=== PATIENT | male | born 1955 | race Caucasian/White ===

== ENCOUNTER 2017-07-07 13:09 | Emergency (ER) | payer OTHER ==
[~2017-07-07] VITALS: Ht 167.6 cm; Wt 90.5 kg
[2017-07-07] MEDS ORDERED: ASPI81TA85 PO (13:22)
[2017-07-07] MEDS ORDERED: METF500T13 PO (13:22)
--- NOTE | 2017-07-07 14:15 | REP ---
CT Head without contrast HISTORY: Infarction COMPARISON: None There is no intraparenchymal hemorrhage, acute infarct, mass or midline shift. The ventricular system and cortical sulci are dilated consistent with minimal volume loss. There is no extra cerebral collection. There is no fracture. The visualized sinuses are clear. IMPRESSION: Minimal volume loss. Signed by Salazar Castañeda MD 07/07/2017 02:06 P
--- NOTE | 2017-07-07 14:32 | REP ---
CHEST PA AND LATERAL: 07/07/2017 CLINICAL HISTORY: Near-syncope. FINDINGS: There are no prior studies. The lungs are well inflated. There is no effusion, lateral pleural thickening, apical scarring, pneumothorax. Heart, mediastinal, and hilar contours normal. There is no cardiomegaly, vascular redistribution or pulmonary edema. Airway and aorta are intact. The bony thorax without compression deformity of focal lesion. IMPRESSION: No acute cardiopulmonary change. Signed by Brayden Dove MD 07/07/2017 06:56 P
[2017-07-07 14:35] LABS: BASO # 0.1 10^3/uL (0.0-0.2); BASO % 0.4 % (0.0-1.0); EOS # 0.1 10^3/uL (0.0-0.50); EOS % 0.6 % (0.0-3.0); IMMATURE GRANULOCYTE % 0.7 % (0-0); LYMPH # 1.7 10^3/uL (1.5-4.5); LYMPH % 14.1 % (24.0-44.0); MEAN CORPUSCULAR HEMOGLOBIN 30.7 pg (27.0-33.0); MEAN CORPUSCULAR VOLUME 83.8 fl (80.0-96.0); MONO # 0.6 10^3/uL (0.0-0.8); MONO % 5.3 % (0.0-5.0); NEUTROPHILS # 9.2 10^3/uL (1.8-7.7); NEUTROPHILS % 78.9 % (36.0-66.0); PLATELET COUNT, AUTOMATED 171 10^3/uL (150-450); WHITE BLOOD COUNT 11.7 10^3/uL (4.0-10.0)
[2017-07-07 14:48] LABS: MEAN CORPUSCULAR HGB CONC 36.6 g/dl (32.0-36.5)
[2017-07-07 15:55] VITALS: BP 145/86
[2017-07-07 16:18] LABS: ANION GAP 11 MEQ/L (8-16); BLOOD UREA NITROGEN 13 MG/DL (7-18); CALCIUM LEVEL 8.4 MG/DL (8.8-10.2); CARBON DIOXIDE LEVEL 22 MEQ/L (21-32); CHLORIDE LEVEL 109 MEQ/L (98-107); FREE T4 1.19 NG/DL (0.76-1.46); GLOMERULAR FILTRATION RATE > 60.0 (>49); GLUCOSE, FASTING 124 MG/DL (80-110); PHOSPHORUS LEVEL 1.9 MG/DL (2.5-4.9); POTASSIUM SERUM 3.8 MEQ/L (3.5-5.1); SODIUM LEVEL 142 MEQ/L (136-145)
--- NOTE | 2017-07-08 12:24 | ECGEPIP ---
Stationary ECG Study [facility] - ED Test Date: 2017-07-07 Pat Name: BENIGNO BANERJEE Department: Room: - Gender: M Section Leader: : 1955 Requested By: XAVI Rice Order Number: [id number] Reading MD: Joy Wynn Measurements Intervals [place] Rate: 53 P: 47 LA: 138 QRS: 43 QRSD: 120 T: 8 QT: 447 QTc: 420 Interpretive Statements SINUS BRADYCARDIA MODERATE INTRAVENTRICULAR CONDUCTION DELAY DECREASED RATE 01/13/16 Electronically Signed On 07-08-2017 12:24:01 EST by Joy Wynn
== END 2017-07-07 16:50 | disposition left against medical advice (07) ==
LOC: M ED 13:09 → EDBD 13:09 → M ED 16:50
DX: R55 Syncope and collapse (principal); E11.9 Type 2 diabetes mellitus without complications; I10 Essential (primary) hypertension; F43.10 Post-traumatic stress disorder, unspecified; M72.2 Plantar fascial fibromatosis; Z79.82 Long term (current) use of aspirin; Z79.84 Long term (current) use of oral hypoglycemic drugs; Z87.891 Personal history of nicotine dependence

== ENCOUNTER → 2018-01-11 | Outpatient (CLI) | payer OTHER ==
[2018-01-11 12:08] LABS: HEMATOCRIT 44.6 % (42.0-52.0); HEMOGLOBIN 15.5 g/dl (13.5-17.5); MEAN CORPUSCULAR HEMOGLOBIN 30.3 pg (27.0-33.0); MEAN CORPUSCULAR HGB CONC 34.8 g/dl (32.0-36.5); MEAN CORPUSCULAR VOLUME 87.3 fl (80.0-96.0); PLATELET COUNT, AUTOMATED 189 10^3/uL (150-450); RED BLOOD COUNT 5.11 10^6/uL (4.30-6.10); RED CELL DISTRIBUTION WIDTH 12.7 % (11.5-14.5); WHITE BLOOD COUNT 9.9 10^3/uL (4.0-10.0)
[2018-01-11 12:58] LABS: ANION GAP 5 MEQ/L (8-16); BLOOD UREA NITROGEN 14 MG/DL (7-18); CALCIUM LEVEL 8.9 MG/DL (8.8-10.2); CARBON DIOXIDE LEVEL 30 MEQ/L (21-32); CHLORIDE LEVEL 107 MEQ/L (98-107); CREATININE FOR GFR 1.19 MG/DL (0.70-1.30); GLOMERULAR FILTRATION RATE > 60.0 (>49); GLUCOSE, FASTING 138 MG/DL (70-100); POTASSIUM SERUM 4.2 MEQ/L (3.5-5.1); SODIUM LEVEL 142 MEQ/L (136-145)
== END ==
LOC: M LAB 11:39
DX: I48.91 Unspecified atrial fibrillation (principal)

== ENCOUNTER → 2020-01-12 | Outpatient (CLI) | payer OTHER ==
[~2020-01-12] MED LIST: ASPI81TA85 PO; LOSA50TA88 PO; METF500T13 PO; OMEP1CAP73 PO; ROSU20TA5 PO; XARE20TA PO
== END ==
LOC: M LABSMTC 09:27
PROVIDERS: ATTEND Anesthesiology
DX: Z03.818 Encounter for observation for suspected exposure to other biological agents ruled out (principal); Z11.59 Encounter for screening for other viral diseases
CPT/HCPCS: C9803; U0003

== ENCOUNTER 2020-01-15 06:37 | Day surgery (SDC) | payer OTHER ==
[~2020-01-15] VITALS: Ht 167.6 cm; Wt 85.3 kg
[~2020-01-15 06:37] MED LIST changes: +NS 1,000 ML IV ONE
[2020-01-15] MEDS ORDERED: propofoL 200 MG/20 ML VIAL As Ordered ONE ×2 (07:05→08:01)
[2020-01-15] MEDS ORDERED: LIDOCAINE 2% 100MG/5ML SDV (FOR ANES.) As Ordered ONE (07:05)
[2020-01-15] MEDS ORDERED: fentaNYL 100 MCG/2 ML INJECTION (J3010) As Ordered ONE (07:41)
--- NOTE | 2020-01-15 08:28 | ROOR ---
Patient Name: Harley Reeves Procedure Date: 01/15/2020 7:36 AM Date of : 1955 Age: 64 Room: [facility] Gender: Male Note Status: Finalized Procedure: Upper GI endoscopy Indications: Follow-up of esophageal reflux Providers: Dl Meier MD Referring MD: YUAN DALLAS Requesting Provider: Medicines: Monitored Anesthesia Care Complications: No immediate complications. Procedure: Pre-Anesthesia Assessment: - Prior to the procedure, a History and Physical was performed, and patient medications and allergies were reviewed. The patient is competent. The risks and benefits of the procedure and the sedation options and risks were discussed with the patient. All questions were answered and informed consent was obtained. Patient identification and proposed procedure were verified by the physician, the nurse and the anesthesiologist in the endoscopy suite. Mental Status Examination: alert and oriented. Airway Examination: normal oropharyngeal airway and neck mobility. Respiratory Examination: clear to auscultation. CV Examination: normal. Prophylactic Antibiotics: The patient does not require prophylactic antibiotics. Prior Anticoagulants: The patient has taken Xarelto (rivaroxaban), last dose was 2 days prior to procedure. ASA Grade Assessment: III - A patient with severe systemic disease. After reviewing the risks and benefits, the patient was deemed in satisfactory condition to undergo the procedure. The anesthesia plan was to use monitored anesthesia care (MAC). Immediately prior to administration of medications, the patient was re-assessed for adequacy to receive sedatives. The heart rate, respiratory rate, oxygen saturations, blood pressure, adequacy of pulmonary ventilation, and response to care were monitored throughout the procedure. The physical status of the patient was re-assessed after the procedure. The Endoscope was introduced through the mouth, and advanced to the second part of duodenum. The upper GI endoscopy was accomplished without difficulty. The patient tolerated the procedure well. Findings: The Z-line was irregular and was found 38 cm from the incisors. Mucosa was biopsied with a cold forceps for histology. One specimen bottle was sent to pathology. A small hiatal hernia was present. The entire examined stomach was normal. The first portion of the duodenum and second portion of the duodenum were normal. Impression: - Z-line irregular, 38 cm from the incisors. Biopsied. - Small hiatal hernia. - Normal stomach. - Normal first portion of the duodenum and second portion of the duodenum. Recommendation: - Discharge patient to home (ambulatory). - Continue present medications. - Telephone GI office for pathology results in 1 week. Dl Meier MD Dl Meier MD 01/15/2020 8:27:49 AM Electronically signed by Dl Meier MD Number of Addenda: 0 Note Initiated On: 01/15/2020 7:36 AM Estimated Blood Loss: Estimated blood loss was minimal.
--- NOTE | 2020-01-15 08:34 | ROOR ---
Patient Name: Harley Reeves Procedure Date: 01/15/2020 7:37 AM Date of : 1955 Age: 64 Room: [facility] Gender: Male Note Status: Finalized Procedure: Colonoscopy Indications: Screening for colorectal malignant neoplasm Providers: Dl Meier MD Referring MD: YUAN DALLAS Requesting Provider: Medicines: Monitored Anesthesia Care Complications: No immediate complications. Procedure: Pre-Anesthesia Assessment: - Prior to the procedure, a History and Physical was performed, and patient medications and allergies were reviewed. The patient is competent. The risks and benefits of the procedure and the sedation options and risks were discussed with the patient. All questions were answered and informed consent was obtained. Patient identification and proposed procedure were verified by the physician, the nurse and the anesthesiologist in the endoscopy suite. Mental Status Examination: alert and oriented. Airway Examination: normal oropharyngeal airway and neck mobility. Respiratory Examination: clear to auscultation. CV Examination: normal. Prophylactic Antibiotics: The patient does not require prophylactic antibiotics. Prior Anticoagulants: The patient has taken Xarelto (rivaroxaban), last dose was 2 days prior to procedure. ASA Grade Assessment: III - A patient with severe systemic disease. After reviewing the risks and benefits, the patient was deemed in satisfactory condition to undergo the procedure. The anesthesia plan was to use monitored anesthesia care (MAC). Immediately prior to administration of medications, the patient was re-assessed for adequacy to receive sedatives. The heart rate, respiratory rate, oxygen saturations, blood pressure, adequacy of pulmonary ventilation, and response to care were monitored throughout the procedure. The physical status of the patient was re-assessed after the procedure. The Colonoscope was introduced through the anus and advanced to the cecum, identified by appendiceal orifice and ileocecal valve. The colonoscopy was performed without difficulty. The patient tolerated the procedure well. The quality of the bowel preparation was excellent. Findings: Hemorrhoids were found on perianal exam. Two semi-pedunculated polyps were found in the descending colon, transverse colon and ascending colon. The polyps were 2 to 5 mm in size. These polyps were removed with a hot snare. Resection and retrieval were complete. Estimated blood loss was minimal. Two sessile polyps were found in the descending colon and transverse colon. The polyps were diminutive in size. These polyps were removed with a cold biopsy forceps. Resection and retrieval were complete. Estimated blood loss was minimal. The retroflexed view of the distal rectum and anal verge was normal and showed no anal or rectal abnormalities. Impression: - Hemorrhoids found on perianal exam. - Two 2 to 5 mm polyps in the descending colon, in the transverse colon and in the ascending colon, removed with a hot snare. Resected and retrieved. - Two diminutive polyps in the descending colon and in the transverse colon, removed with a cold biopsy forceps. Resected and retrieved. - The distal rectum and anal verge are normal on retroflexion view. Recommendation: - Discharge patient to home (ambulatory). - Await pathology results. - Resume Xarelto (rivaroxaban) at prior dose tomorrow. Refer to managing physician for further adjustment of therapy. - Repeat colonoscopy in 3 - 5 years for surveillance of multiple polyps. Dl Meier MD Dl Meier MD 01/15/2020 8:34:11 AM Electronically signed by Dl Meier MD Number of Addenda: 0 Note Initiated On: 01/15/2020 7:37 AM Estimated Blood Loss: Estimated blood loss was minimal.
[2020-01-15 08:50] VITALS: BP 134/99
== END 2020-01-15 08:51 | disposition home or self-care (01) ==
LOC: M OPP 06:37
PROVIDERS: ATTEND Surgery
DX: Z12.11 Encounter for screening for malignant neoplasm of colon (principal); K64.8 Other hemorrhoids; D12.2 Benign neoplasm of ascending colon; D12.3 Benign neoplasm of transverse colon; K22.8 Other specified diseases of esophagus; K44.9 Diaphragmatic hernia without obstruction or gangrene; K21.9 Gastro-esophageal reflux disease without esophagitis; I10 Essential (primary) hypertension; E11.9 Type 2 diabetes mellitus without complications; I48.91 Unspecified atrial fibrillation; F17.210 Nicotine dependence, cigarettes, uncomplicated
CPT/HCPCS: 43239; 45380; 45385; 88305; J3010

== ENCOUNTER → 2020-03-03 | Outpatient (REF) | payer MEDICARE, OTHER ==
[~2020-03-03] MED LIST changes: -ASPI81TA85 PO; +ASPI81TA86 PO; +JANU100T PO; -NS 1,000 ML IV ONE; +SILD100T PO
== END ==
LOC: M SMT 07:08
PROVIDERS: ATTEND Nurse Practitioner Family
DX: R31.0 Gross hematuria (principal)
CPT/HCPCS: 81002; 88108; G0463

== ENCOUNTER → 2020-03-29 | Outpatient (CLI) | payer OTHER | LOC: M LABSMTC 11:09 | PROVIDERS: ATTEND Anesthesiology | DX: Z01.812 Encounter for preprocedural laboratory examination (principal); Z20.828 Contact with and (suspected) exposure to other viral communicable diseases | CPT/HCPCS: C9803; U0003 ==

== ENCOUNTER 2020-04-03 06:59 | Day surgery (SDC) | payer MEDICARE, OTHER ==
[~2020-04-03] VITALS: Ht 167.6 cm; Wt 83.5 kg
[~2020-04-03 06:59] MED LIST changes: -JANU100T PO; +LIDOCAINE 1% MDV 20ML VIAL SQ PRN; +LR 1,000 ML IV ONE; -SILD100T PO; +ceFAZolin SOD 2 GM in IV 1 EA IV ONE
[2020-04-03] MEDS ORDERED: SILD100T PO (07:35)
[2020-04-03] MEDS ORDERED: JANU100T PO (07:35)
[2020-04-03] MEDS ORDERED: LIDOCAINE 2% 100MG/5ML SDV (FOR ANES.) As Ordered ONE (08:10)
[2020-04-03] MEDS ORDERED: propofoL 200 MG/20 ML VIAL As Ordered ONE ×2 (08:10→09:27)
[2020-04-03] MEDS ORDERED: ONDANSETRON 4MG/2ML VIAL As Ordered ONE (08:10)
[2020-04-03] MEDS ORDERED: dexameTHASONE 4 MG/ML 1ML VIAL (J1100 PER 1MG) As Ordered ONE (08:10)
[2020-04-03] MEDS ORDERED: fentaNYL 250 MCG/5 ML INJECTION (J3010) As Ordered ONE (08:11)
[2020-04-03] MEDS ORDERED: MIDAZOLAM INJ 2MG/2ML VIAL (J2250 PER 1MG) As Ordered ONE (08:11)
[2020-04-03] MEDS ORDERED: CONRAY-60 60% 50ML VIAL (Q9961) As Ordered ONE (09:13)
[2020-04-03] MEDS ORDERED: KETOROLAC 60MG 2ML VIAL As Ordered ONE (10:15)
[2020-04-03 10:58] VITALS: BP 164/79
[2020-04-03] MEDS ORDERED: PERCOCET 5MG/325MG TAB PO PRN (11:00)
[2020-04-03] MEDS ORDERED: ONDANSETRON 4MG/2ML VIAL IV PRN (11:00)
[2020-04-03] MEDS ORDERED: LR 1,000 ML IV SCH (11:00)
[2020-04-03] MEDS ORDERED: ACETAMINOPHEN TAB 650MG DOSE (2X325MG) PO PRN (11:00)
[2020-04-15 15:08] LABS: CA Oxalate Dihy 32 % (.); Ca Ox Monohydrate 67 % (.); Size 2x2 mm (.)
--- NOTE | 2020-04-22 15:39 | ECGEPIP ---
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
--- NOTE | 2020-04-23 15:38 | RO ---
DATE OF OPERATION: 04/03/2020 PREOPERATIVE DIAGNOSES: * Gross hematuria. * Kidney stones. POSTOPERATIVE DIAGNOSES: * Gross hematuria. * Kidney stones. PROCEDURES: * Cystoscopy. * Left ureteroscopy with basket extraction of stones. * Left retrograde pyelogram with intraoperative interpretation of images. * Left ureteral stent placement. SURGEON: Ethan Tejada MD. CAD LIBRARIAN: None. ANESTHESIA: General. OPERATIVE INDICATIONS: This is a 65-year-old male who was being worked up for gross hematuria. He was found to have a proximal 5-mm left ureteral stone as well as a small stone inside his kidney. He was brought to the operating room today for treatment. DESCRIPTION OF PROCEDURE: The patient was brought to the operating room and general anesthesia was induced. Prophylactic antibiotics were infused. He was then placed in the dorsal lithotomy position, prepped, and draped in the usual sterile fashion. A rigid cystoscope was inserted into the urethral meatus and advanced to the bladder. After the scope was inserted into the bladder, it was thoroughly examined with both the 30 and 70 lenses. No bladder tumors were seen. Both ureteral orifices were orthotopic and effluxed clear urine. At this point, a guidewire was advanced up the left collecting system. I then advanced the ureteral access sheath up to left collecting system. I went up the access sheath with a flexible ureteroscope and the left kidney was thoroughly examined. Within the lower pole calyx, a small approximately 2-3 mm stone was seen. The stone was grasped with the basket and withdrawn. It did break into two pieces when this happened. No additional stones were seen inside the left kidney. I then shot a retrograde pyelogram which was notable for mild left hydronephrosis with no extravasation. I then withdrew the ureteroscope along with the access sheath and no stones were seen inside the ureter, indicating that the left ureteral stone had passed. At this point, the guidewire was utilized to advance a 6-Mongolian x 22-32 cm JJ ureteral stent into the left collecting system. The wire was removed and there were adequate curls of the stent in the left renal pelvis and in the bladder. The bladder was emptied of all fluids. This marked the conclusion of the procedure. The patient was then taken out of the dorsal lithotomy position, awakened from anesthesia, and transferred to the recovery room in stable condition. ESTIMATED BLOOD LOSS: 5 mL. COMPLICATIONS: None. SPECIMEN: Kidney stones. PLAN: The patient will follow up in the Urology Clinic in a few weeks for stent removal. He also does not require any additional workup for hematuria, as it was likely related to him passing stones. ZAK
--- NOTE | 2020-04-29 13:06 | REP ---
C-ARM VIEWS DURING LEFT URETEROSCOPY AND CYSTOSCOPY Four C-arm views of the abdomen and pelvis are performed. Left ureter was catheterized. Contrast partially opacifies the left pelvicalyceal system. A left ureteral stent is placed. The proximal end is coiled in the left renal pelvis and the distal end in the urinary bladder. 15 seconds of fluoroscopy time is utilized. MTDD
== END 2020-04-03 11:35 | disposition home or self-care (01) ==
LOC: M SDC 06:59
PROVIDERS: ATTEND Urology
DX: N13.2 Hydronephrosis with renal and ureteral calculous obstruction (principal); R31.0 Gross hematuria; E11.9 Type 2 diabetes mellitus without complications; E78.2 Mixed hyperlipidemia; I10 Essential (primary) hypertension; I48.0 Paroxysmal atrial fibrillation; D69.6 Thrombocytopenia, unspecified; G47.33 Obstructive sleep apnea (adult) (pediatric); F12.90 Cannabis use, unspecified, uncomplicated; F33.1 Major depressive disorder, recurrent, moderate; F43.10 Post-traumatic stress disorder, unspecified; K21.9 Gastro-esophageal reflux disease without esophagitis; R06.83 Snoring; R35.1 Nocturia; R80.9 Proteinuria, unspecified; Z79.01 Long term (current) use of anticoagulants; Z79.84 Long term (current) use of oral hypoglycemic drugs; Z79.899 Other long term (current) drug therapy; Z86.010 Personal history of colon polyps
CPT/HCPCS: 52332; 52352; 74420; 82365; 88300; 93005; C1769; C1894; C2617; J0690; J1100; J1885; J2250; J2405; J3010; Q9961

== ENCOUNTER → 2020-12-07 | Outpatient (CLI) | payer OTHER, MEDICARE ==
[~2020-12-07] MED LIST changes: +JANU100T PO; -LIDOCAINE 1% MDV 20ML VIAL SQ PRN; -LR 1,000 ML IV ONE; +SILD100T PO; -ceFAZolin SOD 2 GM in IV 1 EA IV ONE
--- NOTE | 2020-12-07 13:44 | REP ---
INDICATION: PAIN. COMPARISON: None. TECHNIQUE: AP, lateral, bilateral oblique views of the left hand FINDINGS: Mild degenerative changes include periarticular sclerosis and joint space narrowing involving the interphalangeal joints as well as the 1st metacarpophalangeal joint. No acute or healed injury identified. Surrounding soft tissues are unremarkable. IMPRESSION: Mild generalized arthritic changes. <Electronically signed by Lito Carlos > 12/07/20 [id number]
== END ==
LOC: M SOG 09:47
PROVIDERS: ATTEND Orthopaedic Surgery Sports Medicine
DX: M19.042 Primary osteoarthritis, left hand (principal)